=== PATIENT | male | born 1950 | race Caucasian/White ===

== ENCOUNTER 2025-06-30 12:06 | Emergency (ER) | payer MEDICARE, OTHER ==
[2025-06-30] MEDS ORDERED: Ondansetron PF 4 MG/2 ML Vial ONE ×2 (12:19→13:23)
[2025-06-30 12:46] LABS: #Basophils 0.2 thou/uL (0.0-0.2); #Eosinophils 0.4 thou/uL (0.0-0.7); #Lymphocytes 5.5 thou/uL (1.20-3.40); #Monocytes 0.8 thou/uL (0.11-0.59); #Neutrophils 4.9 thou/uL (1.40-6.50); %Basophils 2.0 % (0.0-1.0); %Eosinophils 3.0 % (0.0-10.0); %Lymphocytes 47.1 % (21.0-51.0); %Monocytes 6.5 % (0.0-10.0); %Neutrophils 41.5 % (42.0-75.0); Hematocrit 51.4 % (42.0-52.0); Hemoglobin 17.3 g/dL (14.0-18.0); Mean Corpuscular Hemoglobin 26.7 pg (27.0-31.0); Mean Corpuscular Volume 79.4 fl (78.0-98.0); Platelet Count 185 10x3/uL (130-400); Red Blood Cell (RBC) Count 6.48 mill/uL (4.70-6.10); White Blood Cell (WBC) Count 11.7 10x3/uL (4.8-10.8)
[2025-06-30 12:57] LABS: ALT (SGPT) 57 U/L (Less than 45); AST (SGOT) 44 U/L (11-34); Albumin 4.4 g/dL (3.1-4.5); Alkaline Phosphatase 82 U/L (40-110); Anion Gap 22 mmol/L (10-20); BUN (Urea Nitrogen) 19 mg/dL (8.4-25.7); Bilirubin, Total 1.0 mg/dL (0.3-1.2); Calc. Creatinine Clearance 0 mL/min (70-130); Calcium 9.6 mg/dL (7.8-10.44); Carbon Dioxide 16 mmol/L (23-31); Chloride 108 mmol/L (98-107); Globulin 3.4 g/dL (2.4-3.5); Glucose 160 mg/dL (83-110); Potassium 3.8 mmol/L (3.5-5.1); Sodium 142 mmol/L (136-145)
[2025-06-30 13:08] LABS: Troponin I 0.012 ng/mL (< 0.028)
[2025-06-30] MEDS ORDERED: Ketorolac Tromethamine 30 MG (1 mL) VIAL ONE (13:23)
[2025-06-30] MEDS ORDERED: Pantoprazole 40 MG VIAL ONE (13:23)
[2025-06-30 15:43] LABS: Glucose, Urine (Dipstick) Negative (Negative); Leukocyte Negative (Negative); Protein, Urine (Dipstick) Negative (Neg-Trace); Specific Gravity, Urine 1.020 (1.005-1.030)
[2025-06-30 16:02] LABS: Bacteria/HPF 1+ HPF (None Seen); CAUTI Indications for Culture Alt mental st,lethar; Mucous/LPF 1+ LPF (<2+); RBC/HPF 0-3 HPF (0-3); WBC/HPF 0-3 HPF (0-3)
[2025-06-30 16:04] LABS: Urine Culture Reflex No No
[2025-06-30] MEDS ORDERED: diphenhydrAMINE 50 MG/ML VIAL ONE (16:24)
[2025-06-30 18:48] LABS: Troponin I 0.015 ng/mL (< 0.028)
== END 2025-06-30 21:30 | disposition short-term general hospital (02) ==
LOC: NAV ERS 12:06
DX: T63.441A Toxic effect of venom of bees, accidental (unintentional), initial encounter (principal); R09.02 Hypoxemia; N28.9 Disorder of kidney and ureter, unspecified; R79.1 Abnormal coagulation profile; E11.9 Type 2 diabetes mellitus without complications; Z79.84 Long term (current) use of oral hypoglycemic drugs
CPT/HCPCS: 71045; 80053; 81001; 82962; 83880; 84484 ×2; 85025; 85379; 93005; J1200; J1885; J2405; J2470; J2919; J7030; 36416; 96374; 96375; 96376; 36415-59